=== PATIENT | female | born 1985 | race Caucasian/White ===

== ENCOUNTER 2021-10-11 22:56 | Observation (INO) | payer BC ==
[2021-10-12] MEDS ORDERED: Sodium Chloride 0.9% 2.5 ML Syringe FLUSH PRN ×2 (00:29→08:00)
[2021-10-12] MEDS ORDERED: Sodium Chloride 0.9% 1,000 ML IV ONE ×3 (00:29→03:49)
[2021-10-12] MEDS ORDERED: Sodium Chloride 0.9% 10 ML Syringe FLUSH PRN ×2 (00:29→08:00)
[2021-10-12] MEDS ORDERED: Ondansetron 4 MG/2 ML SDV IVPUSH ONE ×2 (01:22→03:52)
[2021-10-12] MEDS ORDERED: Ketorolac 30 MG/ML SDV IVPUSH ONE (01:22)
[2021-10-12 01:44] LABS: BLOOD UREA NITROGEN,BUN 12 mg/dL (7.0-18.0); CARBON DIOXIDE,CO2 23.9 mmol/L (21.0-32.0); CHLORIDE,CL 98 mmol/L (98-107); GLUCOSE RANDOM 145 mg/dL (74-106); LIPASE 54 U/L (73-393); POTASSIUM,K 3.8 mmol/L (3.5-5.1); SODIUM,NA 137 mmol/L (136-145)
[2021-10-12] MEDS ORDERED: Iopamidol 755 MG/ML 500 ML Multipack Bottle IVPUSH STA (02:21)
[2021-10-12] MEDS ORDERED: Piperacillin/Tazobactam 3.375 GM in Sodium Chloride 0.9% 50 ML IV ONE (03:48)
[2021-10-12] MEDS ORDERED: fentaNYL 50 MCG/ML SDV IVPUSH ONE (03:52)
[2021-10-12] MEDS ORDERED: Morphine 2 MG/ML SYRINGE IVPUSH PRN (07:59)
[2021-10-12] MEDS ORDERED: Ondansetron 4 MG/2 ML SDV IVPUSH PRN (08:00)
[2021-10-12] MEDS ORDERED: Docusate Sodium 100 MG Cap PO PRN (08:00)
[2021-10-12] MEDS ORDERED: NORGESTIMATE ETHINYL ESTRADIOL PO SCH ×2 (09:00→22:00)
[2021-10-12] MEDS: Piperacillin/Tazobactam 3.375 GM in Sodium Chloride 0.9% 100 ML IV SCH ×3 (09:23→21:15)
[2021-10-12] MEDS: Acetaminophen 325 MG Tab PO PRN ×2 (09:23→15:31)
[2021-10-12] MEDS: Lactated Ringers 1,000 ML IV SCH ×2 (11:51→23:10)
[2021-10-12] MEDS ORDERED: Gadobenate Dimeglumine 529 MG/ML 20 ML SDV IVPUSH STA (13:15)
[2021-10-12] MEDS ORDERED: oxyCODONE 5 MG Tab PO PRN (14:35)
[2021-10-12] MEDS ORDERED: 50% Dextrose in Water 50 ML Syringe IVPUSH PRN (16:19)
[2021-10-12] MEDS ORDERED: Glucagon,Human Recombinant 1 MG Vial IM PRN (16:19)
[2021-10-12] MEDS: Insulin Aspart 100 Units/ML 3 ML Pen SUBCUT SCH (18:07)
[2021-10-13] MEDS: Piperacillin/Tazobactam 3.375 GM in Sodium Chloride 0.9% 100 ML IV SCH ×2 (03:32→10:26)
[2021-10-13] MEDS: Acetaminophen 325 MG Tab PO PRN ×2 (03:36→12:06)
[2021-10-13] MEDS: Insulin Aspart 100 Units/ML 3 ML Pen SUBCUT SCH ×2 (06:43→12:24)
[2021-10-13 07:23] LABS: BLOOD UREA NITROGEN,BUN 9 mg/dL (7.0-18.0); CARBON DIOXIDE,CO2 23.2 mmol/L (21.0-32.0); CHLORIDE,CL 105 mmol/L (98-107); GLUCOSE RANDOM 97 mg/dL (74-106); POTASSIUM,K 3.6 mmol/L (3.5-5.1); SODIUM,NA 142 mmol/L (136-145)
[2021-10-13] MEDS: Lactated Ringers 1,000 ML IV SCH (08:09)
[2021-10-13] MEDS ORDERED: Ibuprofen 400 MG Tab PO PRN (09:30)
[2021-10-13] MEDS ORDERED: Acetaminophen 325 MG Tab ONE (12:06)
[2021-10-14 11:06] LABS: C.TRACHOMATIS BY TMA Negative (Negative); N.GONORRHOEAE BY TMA Negative (Negative)
== END 2021-10-13 15:33 | disposition home or self-care (01) ==
LOC: MW.ED 22:56 → MW.MS 10-12 03:53
PROVIDERS: ADMIT Internal Medicine; ATTEND Internal Medicine
DX: N83.202 Unspecified ovarian cyst, left side (principal); E11.9 Type 2 diabetes mellitus without complications; D72.829 Elevated white blood cell count, unspecified; E66.01 Morbid (severe) obesity due to excess calories; Z79.899 Other long term (current) drug therapy; Z20.822 Contact with and (suspected) exposure to COVID-19
CPT/HCPCS: 36415; 71045; 71045-26; 72197; 72197-26; 74177; 74177-26; 76830; 76830-26; 80048; 80053; 81001; 82947; 83605; 83690; 84703; 85025; 86304; 87040; 87491; 87591; A9270-GY; A9577; J1885; J2405; J2543; J3010; J7030; J7120; Q9967; U0002

== ENCOUNTER 2022-02-15 10:11 | Day surgery (SDC) | payer BC ==
[~2022-02-15 10:11] MED LIST: Lactated Ringers 1,000 ML IV SCH; Sodium Chloride 0.9% 10 ML Syringe FLUSH PRN; Sodium Chloride 0.9% 2.5 ML Syringe FLUSH PRN; Sodium Chloride 0.9% 20 ML SDV IV PRN; ceFAZolin 2 GM in Premix Bag 1 BAG IV ONE
[2022-02-15] MEDS ORDERED: fentaNYL 50 MCG/ML SDV IVPUSH PRN (10:15)
[2022-02-15] MEDS ORDERED: Ondansetron 4 MG/2 ML SDV IVPUSH PRN (10:15)
[2022-02-15] MEDS ORDERED: Albuterol 0.083% 2.5 MG/3 ML Neb Soln NEB PRN (10:15)
[2022-02-15] MEDS ORDERED: HYDROmorphone 1 MG/ML Syringe IVPUSH PRN (10:15)
[2022-02-15] MEDS ORDERED: Naloxone 0.4 MG/ML SDV IVPUSH PRN (10:15)
[2022-02-15] MEDS ORDERED: Metoclopramide 10 MG/2 ML SDV IVPUSH PRN (10:15)
[2022-02-15] MEDS ORDERED: Propofol 200 MG/20 ML SDV ONE (11:50)
[2022-02-15] MEDS ORDERED: fentaNYL 100 MCG/2 ML SDV ONE ×2 (11:51→13:19)
[2022-02-15] MEDS ORDERED: Heparin Sodium 100 Units/ML 3 ML Syringe ONE (12:12)
[2022-02-15] MEDS ORDERED: Lidocaine 1% 20 ML MDV ONE (12:12)
[2022-02-15] MEDS ORDERED: Octyl 2-Cyanoacrylate 1 Tube ONE (12:12)
[2022-02-15] MEDS ORDERED: Bupivacaine 0.5% 10 ML SDV ONE (12:12)
[2022-02-15] MEDS ORDERED: Iopamidol 408 MG/ML 20 ML SDV ONE (12:13)
[2022-02-15] MEDS ORDERED: HYDROmorphone 2 MG/ML Syringe ONE (13:37)
== END 2022-02-15 15:32 | disposition home or self-care (01) ==
LOC: MW.SDS 10:11
PROVIDERS: ATTEND Surgery
DX: C56.9 Malignant neoplasm of unspecified ovary (principal); G47.30 Sleep apnea, unspecified; E11.9 Type 2 diabetes mellitus without complications; E66.01 Morbid (severe) obesity due to excess calories; Z79.899 Other long term (current) drug therapy; Z98.890 Other specified postprocedural states; Z90.710 Acquired absence of both cervix and uterus; Z90.79 Acquired absence of other genital organ(s); Z90.722 Acquired absence of ovaries, bilateral; Z79.84 Long term (current) use of oral hypoglycemic drugs; Z68.41 Body mass index [BMI] 40.0-44.9, adult
CPT/HCPCS: 36561; 71045; 76000; A9270; J0131; J0690; J1170; J1642; J2704; J3010; J3490; J7120; Q9966

== ENCOUNTER 2024-06-25 14:01 | Emergency (ER) | payer BC ==
[2024-06-25] MEDS ORDERED: Sodium Chloride 0.9% 10 ML Syringe FLUSH PRN (14:15)
[2024-06-25] MEDS ORDERED: Sodium Chloride 0.9% 2.5 ML Syringe FLUSH PRN (14:15)
[2024-06-25 15:25] LABS: BASE EXCESS VENOUS 1.2 (-2.0-3.0); PH,VENOUS 7.39 (7.31-7.41)
[2024-06-25 15:37] LABS: HEMOGLOBIN A1C 11.5 %
[2024-06-25] MEDS: Sodium Chloride 0.9% 1,000 ML IV STA (15:40)
[2024-06-25] MEDS ORDERED: 50% Dextrose in Water 50 ML Syringe IVPUSH PRN ×2 (16:27→17:56)
[2024-06-25] MEDS ORDERED: Glucagon,Human Recombinant 1 MG Vial IM PRN ×2 (16:27→17:56)
[2024-06-25] MEDS: Insulin Regular, Human 100 Units/ML 10 ML Vial IVPUSH ONE ×2 (17:19→18:18)
== END 2024-06-25 19:19 | disposition home or self-care (01) ==
LOC: MW.ED 14:01
DX: E11.65 Type 2 diabetes mellitus with hyperglycemia (principal); R00.0 Tachycardia, unspecified; I10 Essential (primary) hypertension; Z75.8 Other problems related to medical facilities and other health care; Z90.710 Acquired absence of both cervix and uterus; Z90.49 Acquired absence of other specified parts of digestive tract; Z79.84 Long term (current) use of oral hypoglycemic drugs; Z79.899 Other long term (current) drug therapy
CPT/HCPCS: 36415; 82803; 82947; 83036; 96360; 99284; J1642; J1815; J7030